=== PATIENT | female | born 1980 | race Caucasian/White ===

== ENCOUNTER → 2017-05-02 | Outpatient (CLI) | payer OTHER ==
[~2017-05-02] MED LIST: ADVAI100I PO; BENZ100C4 PO
[2017-05-02 10:59] LABS: AUTOMATED NEUTROPHIL # 5.6 TH/MM3 (1.8-7.7); BASOPHIL # 0.1 TH/MM3 (0-0.2); BASOPHIL % 0.7 % (0.0-2.0); EOSINOPHIL # 0.2 TH/MM3 (0-0.4); EOSINOPHIL % 2.6 % (0.0-4.0); HEMATOCRIT 38.7 % (35.0-46.0); HEMO FLAGS DIFF FINAL; LYMPH % 26.6 % (9.0-44.0); LYMPHOCYTE # 2.3 TH/MM3 (1.0-4.8); MEAN CELL VOLUME 90.3 FL (80.0-100.0); MEAN CORPUSCULAR HEMOGLOBIN 30.4 PG (27.0-34.0); MEAN CORPUSCULAR HGB CONC 33.6 % (32.0-36.0); MONO % 5.1 % (0.0-8.0); PLATELET COUNT 362 TH/MM3 (150-450); RED BLOOD COUNT 4.28 MIL/MM3 (4.00-5.30); RED CELL DISTRIBUTION WIDTH 13.4 % (11.6-17.2); WHITE BLOOD COUNT 8.7 TH/MM3 (4.0-11.0)
[2017-05-02 11:28] LABS: ALT (GPT) 35 U/L (10-53); ANION GAP 5 MEQ/L (5-15); AST (GOT) 16 U/L (15-37); BLOOD UREA NITROGEN 14 MG/DL (7-18); CHLORIDE 106 MEQ/L (98-107); GLOMERULAR FILTRATION RATE 94 ML/MIN (>89); GLUCOSE,FASTING 109 MG/DL (74-99); POTASSIUM 4.1 MEQ/L (3.5-5.1); SODIUM (NA) 138 MEQ/L (136-145)
[2017-05-02 11:37] LABS: ALKALINE PHOSPHATASE 67 U/L (45-117); BETA HCG QUANT LESS THAN 1 MIU/ML (0-5); FOLLICLE STIMULATING HORMONE 5.3 mIU/mL; LUTEINIZING HORMONE 7.1 mIU/mL; TOTAL BILIRUBIN ADULT 0.2 MG/DL (0.2-1.0)
[2017-05-03 23:52] LABS: THYROGLOB ABS 13 IU/mL (< OR = 1)
== END ==
LOC: CLAB 10:16
DX: I10 Essential (primary) hypertension (principal); E06.3 Autoimmune thyroiditis; N92.6 Irregular menstruation, unspecified; E55.9 Vitamin D deficiency, unspecified; E66.01 Morbid (severe) obesity due to excess calories
CPT/HCPCS: 36415; 80053; 82306; 83001; 83002; 83525; 84403; 84443; 84702; 85025; 86376; 86800

== ENCOUNTER → 2017-09-06 | Outpatient (CLI) | payer OTHER ==
[2017-09-06 14:45] LABS: FREE T4 1.06 NG/DL (0.76-1.46)
== END ==
LOC: CLAB 13:48
DX: E06.3 Autoimmune thyroiditis (principal); N92.6 Irregular menstruation, unspecified
CPT/HCPCS: 36415; 84146; 84439; 84443